=== PATIENT | female | born 1945 | race Caucasian/White ===

== ENCOUNTER → 2019-12-02 11:15 | Outpatient (BNVA) | payer MEDICARE, OTHER, SELFPAY | PROVIDERS: Family Provider Family Medicine; PCP Family Medicine; Referring Provider Family Medicine; Visit Provider Nurse Practitioner | DX: G25.9 Extrapyramidal and movement disorder, unspecified (principal) | CPT/HCPCS: 99204 ==

== ENCOUNTER 2019-12-15 15:16 | Outpatient (CLI) | payer MEDICARE, OTHER, SELFPAY ==
--- NOTE | 2019-12-15 15:25 | MM_ITS ---
WS: [id number] BILATERAL DIGITAL SCREENING MAMMOGRAPHY WITH CAD CLINICAL INFORMATION: SCREENING HISTORY: Screening mammogram. No current complaints. COMPARISON: October 02, 2018 TECHNIQUE: Bilateral CC and MLO views. FINDINGS: Scattered fibroglandular densities bilaterally. No suspicious focal mass, asymmetry, calcifications, or architectural distortion. No evidence of malignancy. Stable benign calcification left breast. Vasc ular calcification. MM/[place] [id number] IMPRESSION: BI-RADS: 2-Benign FOLLOW UP: 1 Year Follow-up Recommend return to annual screening mammography.
== END 2019-12-15 15:17 | disposition home or self-care (01) ==
LOC: RADSHAW 15:23
PROVIDERS: PCP Family Medicine; Visit Provider Family Medicine
DX: Z12.31 Encounter for screening mammogram for malignant neoplasm of breast (principal)
CPT/HCPCS: 77067

== ENCOUNTER 2020-02-26 06:00 | Outpatient (RCR) | payer MEDICARE, OTHER, SELFPAY | END 2020-03-27 23:59 | disposition home or self-care (01) | LOC: MPT 06:00 | PROVIDERS: PCP Family Medicine; Referring Provider Psychiatry & Neurology Neurology; Visit Provider Psychiatry & Neurology Neurology | DX: G20 Parkinson's disease (principal); R26.81 Unsteadiness on feet | CPT/HCPCS: 97110 ==

== ENCOUNTER → 2020-03-07 15:33 | Outpatient (BNVA) | payer MEDICARE, OTHER, SELFPAY | PROVIDERS: PCP Family Medicine; Visit Provider Nurse Practitioner | DX: G25.9 Extrapyramidal and movement disorder, unspecified (principal); M54.9 Dorsalgia, unspecified; F32.9 Major depressive disorder, single episode, unspecified | CPT/HCPCS: 99214 ==

== ENCOUNTER 2020-03-14 14:51 | Outpatient (CLI) | payer MEDICARE, OTHER, SELFPAY ==
--- NOTE | 2020-03-14 15:15 | XR_ITS ---
WS: [id number] CERVICAL SPINE TECHNIQUE: 3 views of the cervical spine CLINICAL INFORMATION: M54.9 - Dorsalgia, unspecified. COMPARISON: None. FINDINGS: Osteopenia. Mild spondylitic changes. Normal C1-C2 articulation. Mild cervical curve convex left. Nor mal dens. Disc space narrowing C3-C4 and C4-C5. Slight retrolisthesis C3 on C4 and C4 on C5. Prevertebral soft tissues within normal limits. XR/XR cervical spine 3V* [id number] IMPRESSION: 1. Osteopenia. 2. Mild spondylitic changes cervical spine. 3. Slight retrolisthesis C3 on C4 and C4 on C5. 4. Disc space narrowing worse at C3-C4 and C4-C5.
--- NOTE | 2020-03-14 15:45 | XR_ITS ---
WS: [id number] THORACIC SPINE TECHNIQUE: 3 views of the thoracic spine CLINICAL INFORMATION: M54.9 - Dorsalgia, unspecified. COMPARISON: None. FINDINGS: Mild thoracic curve convex right. Mild thoracic kyphosis. Minimal anterior wedging in the mid and upp er thoracic spine. No acute appearing compression fractures. Mild disc space narrowing throughout the thoracic spine. XR/XR thoracic spine 3V* [id number] IMPRESSION: 1. Mild thoracic curve convex right. Mild thoracic kyphosis. 2. Mild disc space narrowing throughout the thoracic spine.
== END 2020-03-14 14:52 | disposition home or self-care (01) ==
LOC: RADWPI 14:54
PROVIDERS: PCP Family Medicine; Visit Provider Nurse Practitioner
DX: M54.9 Dorsalgia, unspecified (principal); M40.294 Other kyphosis, thoracic region; M85.88 Other specified disorders of bone density and structure, other site
CPT/HCPCS: 72040; 72072

== ENCOUNTER → 2020-04-19 12:59 | Outpatient (BNVA) | payer MEDICARE, OTHER, SELFPAY | PROVIDERS: PCP Family Medicine; Visit Provider Specialist | DX: G25.0 Essential tremor (principal); M54.9 Dorsalgia, unspecified | CPT/HCPCS: 99214; 99215 ==

== ENCOUNTER → 2020-05-05 13:31 | Outpatient (BNVA) | payer MEDICARE, OTHER, SELFPAY | PROVIDERS: PCP Family Medicine; Referring Provider Specialist; Visit Provider Anesthesiology Pain Medicine | DX: G25.9 Extrapyramidal and movement disorder, unspecified (principal); M54.16 Radiculopathy, lumbar region; M47.816 Spondylosis without myelopathy or radiculopathy, lumbar region; M54.14 Radiculopathy, thoracic region; M54.9 Dorsalgia, unspecified; Z79.891 Long term (current) use of opiate analgesic | CPT/HCPCS: 99204 ==

== ENCOUNTER 2020-05-23 09:13 | Outpatient (CLI) | payer MEDICARE, OTHER, SELFPAY ==
--- NOTE | 2020-05-23 09:30 | MR_ITS ---
WS: [id number] MRI LUMBAR SPINE NONCONTRAST TECHNIQUE: Sagittal T1, T2 and STIR imaging. Axial T1 and T2 imaging. CLINICAL INFORMATION: PAIN COMPARISON: None. FINDINGS: Mild lumbar curve. No acute compression. No high-grade central canal stenosis. L1-L2: Normal. L2-L3: Mild annular bulging. Slight narrowing of the subarticular recess bilaterally. Mild proximal f oraminal narrowing. Mild facet arthropathy. L3-L4: Mild annular bulging with slight impingement traversing right L4 nerve root. Mild right forami nal narrowing. Mild facet arthropathy. L4-L5: Mild annular bulging with narrowing of the subarticular recess bilaterally and slight impingem ent traversing right L5 nerve root. Mild right and no significant left foraminal narrowing. Mild face t arthropathy. L5-S1: No significant disc bulging. Spinal canal and foramen are patent. Visualized pelvic bony structures: Normal. Paravertebral soft tissues: Normal. MR/MR lumbar spine wo con* [id number] IMPRESSION: 1. Mild lumbar curve. No acute compression. No high-grade central canal stenos is. 2. Annular bulging L2-3 with slight impingement traversing L3 nerve roots bila terally. Mild bilateral proximal foraminal narrowing. 3. Annular bulging L3-4 with impingement on the traversing right L4 nerve root subarticular recess. Mild right foraminal narrowing. 4. Annular bulging L4-5 impinges the traversing right greater than left L5 ner ve roots in the subarticular recess. Mild right L4-5 foraminal narrowing.
--- NOTE | 2020-05-23 09:30 | MR_ITS ---
WS: [id number] MRI THORACIC SPINE WITHOUT CONTRAST TECHNIQUE: Sagittal T1, T2 and STIR imaging. Axial T2 imaging. Noncontrast imaging obtained. CLINICAL INFORMATION: PAIN COMPARISON: None. FINDINGS: Moderate thoracic kyphosis in the mid and upper thoracic spine. Mild chronic anterior wedging at T5-T 8. Endplate degenerative changes T9-T10. Cord signal is normal. No high-grade central canal stenosis. Moderate facet arthropathy in the lower thoracic spine. No acute compression fractures. Tiny central protrusion T6-T7 with slight effacement of the ventral thecal sac. Adrenal glands are normal. Normal caliber thoracic aorta. Moderate esophageal hiatal hernia. MR/MR thoracic spin wo con* [id number] IMPRESSION: 1. Moderate thoracic kyphosis. No acute compression fractures. 2. Chronic anterior wedging at T5-T8. 3. Tiny central protrusion at T6-7 with slight effacement of the ventral theca l sac. 4. Moderate facet arthropathy in the lower thoracic spine. 5. No other significant findings.
--- NOTE | 2020-05-23 11:00 | XR_ITS ---
WS: [id number] LUMBAR SPINE FLEXION AND EXTENSION TECHNIQUE: 3 views of the lumbar spine: Lateral neutral, flexion, and extension views. CLINICAL INFORMATION: M47.816 - Spondylosis without myelopathy or radiculopathy, lumbar region COMPARISON: None. FINDINGS: Normal lumbar alignment on the neutral view. No instability on the flexion and extension views. Osteopenia. Moderate facet arthritis L4-L5 and L5-S1. Mild disc space narrowing L5-S1. Aortic calcifi cation. XR/XR lumbar spine f/e only [id number] IMPRESSION: 1. Normal lumbar alignment on the neutral view. No instability on flexion exte nsion. 2. Osteopenia
== END 2020-05-23 09:14 | disposition home or self-care (01) ==
LOC: RADWPI 09:26
PROVIDERS: PCP Family Medicine; Visit Provider Anesthesiology Pain Medicine
DX: M47.816 Spondylosis without myelopathy or radiculopathy, lumbar region (principal); M54.16 Radiculopathy, lumbar region; M85.88 Other specified disorders of bone density and structure, other site; M40.294 Other kyphosis, thoracic region; M48.54XA Collapsed vertebra, not elsewhere classified, thoracic region, initial encounter for fracture; M51.24 Other intervertebral disc displacement, thoracic region; M47.814 Spondylosis without myelopathy or radiculopathy, thoracic region; M51.26 Other intervertebral disc displacement, lumbar region
CPT/HCPCS: 72120; 72146; 72148

== ENCOUNTER → 2020-05-26 10:30 | Outpatient (BNVA) | payer MEDICARE, OTHER, SELFPAY | PROVIDERS: PCP Family Medicine; Visit Provider Anesthesiology Pain Medicine | DX: G89.29 Other chronic pain (principal); M54.9 Dorsalgia, unspecified; M54.14 Radiculopathy, thoracic region; M54.16 Radiculopathy, lumbar region; M47.814 Spondylosis without myelopathy or radiculopathy, thoracic region; M51.36 Other intervertebral disc degeneration, lumbar region; M47.816 Spondylosis without myelopathy or radiculopathy, lumbar region; Z79.891 Long term (current) use of opiate analgesic | CPT/HCPCS: 99215 ==

== ENCOUNTER → 2020-06-03 13:18 | Outpatient (BNVA) | payer MEDICARE, OTHER, SELFPAY | PROVIDERS: PCP Family Medicine; Visit Provider Anesthesiology Pain Medicine | DX: M54.16 Radiculopathy, lumbar region (principal); M54.9 Dorsalgia, unspecified; Z79.891 Long term (current) use of opiate analgesic | CPT/HCPCS: 64483; 64484; J1100; J3490 ==

== ENCOUNTER → 2020-06-17 13:02 | Outpatient (BNVA) | payer MEDICARE, OTHER, SELFPAY | PROVIDERS: PCP Family Medicine; Visit Provider Anesthesiology Pain Medicine | DX: M54.16 Radiculopathy, lumbar region (principal); M54.9 Dorsalgia, unspecified; Z79.891 Long term (current) use of opiate analgesic | CPT/HCPCS: 64483; 64484; J1100; J3490 ==

== ENCOUNTER 2020-06-21 11:25 | Outpatient (RCR) | payer MEDICARE, OTHER, SELFPAY | END 2020-06-24 23:59 | disposition home or self-care (01) | LOC: SPT 11:25 | PROVIDERS: PCP Family Medicine; Referring Provider Anesthesiology Pain Medicine; Visit Provider Anesthesiology Pain Medicine | DX: M54.5 Low back pain (principal); G89.29 Other chronic pain | CPT/HCPCS: 97161 ==

== ENCOUNTER 2020-06-25 06:00 | Outpatient (RCR) | payer MEDICARE, OTHER, SELFPAY | END 2020-07-25 23:59 | disposition home or self-care (01) | LOC: SPT 06:00 | PROVIDERS: PCP Family Medicine; Referring Provider Anesthesiology Pain Medicine; Visit Provider Anesthesiology Pain Medicine | DX: M54.5 Low back pain (principal); G89.29 Other chronic pain | CPT/HCPCS: 97110; 97112; 97116 ==

== ENCOUNTER → 2020-07-04 10:13 | Outpatient (BNVA) | payer MEDICARE, OTHER, SELFPAY | PROVIDERS: PCP Family Medicine; Visit Provider Anesthesiology Pain Medicine | DX: M54.9 Dorsalgia, unspecified (principal); M54.14 Radiculopathy, thoracic region; M54.16 Radiculopathy, lumbar region; M47.814 Spondylosis without myelopathy or radiculopathy, thoracic region; M51.36 Other intervertebral disc degeneration, lumbar region; M47.816 Spondylosis without myelopathy or radiculopathy, lumbar region; Z79.891 Long term (current) use of opiate analgesic | CPT/HCPCS: 99214 ==

== ENCOUNTER 2020-07-26 06:00 | Outpatient (RCR) | payer MEDICARE, OTHER, SELFPAY | END 2020-08-24 23:59 | disposition home or self-care (01) | LOC: SPT 06:00 | PROVIDERS: PCP Family Medicine; Referring Provider Anesthesiology Pain Medicine; Visit Provider Anesthesiology Pain Medicine | DX: M54.5 Low back pain (principal); G89.29 Other chronic pain | CPT/HCPCS: 97110; 97112; 97116 ==

== ENCOUNTER → 2020-08-01 11:02 | Outpatient (BNVA) | payer MEDICARE, OTHER, SELFPAY | PROVIDERS: PCP Family Medicine; Visit Provider Anesthesiology Pain Medicine | DX: G89.29 Other chronic pain (principal); M54.9 Dorsalgia, unspecified; M54.14 Radiculopathy, thoracic region; M54.16 Radiculopathy, lumbar region; M47.814 Spondylosis without myelopathy or radiculopathy, thoracic region; M51.36 Other intervertebral disc degeneration, lumbar region; M47.816 Spondylosis without myelopathy or radiculopathy, lumbar region; M79.604 Pain in right leg; Z79.891 Long term (current) use of opiate analgesic | CPT/HCPCS: 99214 ==

== ENCOUNTER → 2020-08-12 13:00 | Outpatient (BNVA) | payer MEDICARE, OTHER, SELFPAY | PROVIDERS: PCP Family Medicine; Visit Provider Anesthesiology Pain Medicine | DX: M47.814 Spondylosis without myelopathy or radiculopathy, thoracic region (principal); M54.9 Dorsalgia, unspecified; Z79.891 Long term (current) use of opiate analgesic | CPT/HCPCS: 64490; 64491; 64492; J1030; J3490 ==

== ENCOUNTER 2020-08-25 06:00 | Outpatient (RCR) | payer MEDICARE, OTHER, SELFPAY | END 2020-09-24 23:59 | disposition home or self-care (01) | LOC: SPT 06:00 | PROVIDERS: PCP Family Medicine; Referring Provider Anesthesiology Pain Medicine; Visit Provider Anesthesiology Pain Medicine | DX: M54.5 Low back pain (principal); G89.29 Other chronic pain | CPT/HCPCS: 97110 ==

== ENCOUNTER → 2020-08-31 11:01 | Outpatient (BNVA) | payer MEDICARE, OTHER, SELFPAY | PROVIDERS: PCP Family Medicine; Visit Provider Specialist | DX: G31.84 Mild cognitive impairment of uncertain or unknown etiology (principal); D36.10 Benign neoplasm of peripheral nerves and autonomic nervous system, unspecified; G51.33 Clonic hemifacial spasm, bilateral | CPT/HCPCS: 96116; 99215 ==

== ENCOUNTER → 2020-09-01 12:49 | Outpatient (BNVA) | payer MEDICARE, OTHER, SELFPAY | PROVIDERS: PCP Family Medicine; Visit Provider Anesthesiology Pain Medicine | DX: M54.9 Dorsalgia, unspecified (principal); M54.14 Radiculopathy, thoracic region; M54.16 Radiculopathy, lumbar region; M47.814 Spondylosis without myelopathy or radiculopathy, thoracic region; M51.36 Other intervertebral disc degeneration, lumbar region; M47.816 Spondylosis without myelopathy or radiculopathy, lumbar region | CPT/HCPCS: 99213 ==

== ENCOUNTER → 2020-11-03 10:32 | Outpatient (BNVA) | payer MEDICARE, OTHER, SELFPAY | PROVIDERS: PCP Family Medicine; Visit Provider Specialist | DX: G31.83 Neurocognitive disorder with Lewy bodies (principal); F02.80 Dementia in other diseases classified elsewhere, unspecified severity, without behavioral disturbance, psychotic disturbance, mood disturbance, and anxiety; G51.33 Clonic hemifacial spasm, bilateral | CPT/HCPCS: 64612; 99215; J0585 ==

== ENCOUNTER → 2020-11-16 11:54 | Outpatient (BNVA) | payer MEDICARE, OTHER, SELFPAY | PROVIDERS: PCP Family Medicine; Visit Provider Specialist | DX: R49.8 Other voice and resonance disorders (principal); G51.33 Clonic hemifacial spasm, bilateral; T48.295A Adverse effect of other drugs acting on muscles, initial encounter; G20 Parkinson's disease; G31.84 Mild cognitive impairment of uncertain or unknown etiology; F32.9 Major depressive disorder, single episode, unspecified | CPT/HCPCS: 99215 ==

== ENCOUNTER → 2020-11-24 12:46 | Outpatient (BNVA) | payer MEDICARE, OTHER, SELFPAY | PROVIDERS: PCP Family Medicine; Visit Provider Anesthesiology Pain Medicine | DX: M47.814 Spondylosis without myelopathy or radiculopathy, thoracic region (principal); M54.14 Radiculopathy, thoracic region; M51.36 Other intervertebral disc degeneration, lumbar region; M47.816 Spondylosis without myelopathy or radiculopathy, lumbar region; M54.16 Radiculopathy, lumbar region | CPT/HCPCS: 99213; 99214 ==

== ENCOUNTER 2020-12-13 10:13 | Emergency (ER) | payer MEDICARE, OTHER, SELFPAY ==
[2020-12-13 10:26] VITALS: BP 138/80; PULSE 100; RESP 16; TEMP 36.6; O2SAT 97; BMI 20.9
--- NOTE | 2020-12-13 11:07 | XRR_ITS ---
PROCEDURE INFORMATION: Exam: XR Chest Exam date and time: 12/13/2020 11:07 AM Age: 75 years old Clinical indication: Cough and dyspnea; Patient HX: -general weakness; Additional info: Dyspnea/cough TECHNIQUE: Imaging protocol: XR of the chest. Views: 1 view. COMPARISON: CR Chest 2 views* [id number] 06/09/2018 2:26 PM FINDINGS: Lungs: Unremarkable. No consolidation. Pleural spaces: Unremarkable. No pleural effusion. No pneumothorax. Heart/Mediastinum: There is a hiatal hernia similar to old studies. The heart is not enlarged. Bones/joints: Unremarkable. XR/XR chest 1V portable [id number] IMPRESSION: No acute abnormalities are seen in the chest. Radiation Dose CTDIVOL = (mGy): DLP = (mGy-cm)
--- NOTE | 2020-12-13 11:52 | CT_ITS ---
WS: [id number] CT HEAD TECHNIQUE: Noncontrast CT of the head obtained from the skullbase to the vertex. CLINICAL INFORMATION: weakness, leg weakness COMPARISON: CT February 2018 and MRI June 2019 DLP: 814.[address] scans at [facility] use at least one of these dose optimization techniques: automated e xposure control; mA and/or kV adjustment per patient size (includes targeted exams where dose is matc hed to clinical indication); or iterative reconstruction. FINDINGS: No evidence of intracranial hemorrhage or mass effect. Ventricular system and basal cisterns are espinoza nt. Moderate small vessel changes with moderate parenchymal volume loss. 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 Intracranial vascular calcification. No extra-axial fluid collections. No evidence of mass or mass effect. Polypoid mucosal thickening in the paranasal sinuses. Partial opacification ethmoid air cells. Mastoi d air cells are well aerated.. CT/CT head wo con* [id number] IMPRESSION: 1. No evidence of intracranial hemorrhage or mass effect. 2. Moderate small vessel changes with moderate parenchymal volume loss. 3. Chronic lacunar infarcts in the basal ganglia. 4. Polypoid mucosal thickening in the paranasal sinuses. 5. No acute intracranial findings.
[2020-12-13 11:59] LABS: Basophils # 0.1 10^3/uL (0.0-0.1); Eosinophils # 0.3 10^3/uL (0.0-0.8); Eosinophils % 4.5 %; Hematocrit 39.2 % (37.0-47.0); Hemoglobin 13.6 g/dL (11.5-15.3); Lymphocytes # 1.2 10^3/uL (0.8-4.8); Lymphocytes % 20.9 %; Mean Corpuscular HGB Conc 34.7 g/dL (30.0-36.0); Mean Corpuscular Hemoglobin 31.9 pg (28.0-34.0); Mean Corpuscular Volume 91.8 fl (81-99); Monocytes # 0.5 10^3/uL (0.2-0.9); Monocytes % 8.3 %; Neutrophils # 3.77 10^3/uL (1.8-7.7); Neutrophils % 65.3 %; Nucleated Red Blood Cells % 0 %; Platelet Count 295 10^3/cmm (130-400); Red Blood Count 4.27 10^6/uL (4.1-5.3); Red Cell Distribution Width 11.6 % (12.1-15.1); White Blood Count 5.8 10^3/uL (4.0-10.0)
[2020-12-13 12:21] LABS: Alanine Aminotransferase 16 U/L (0-33); Albumin Level 4.1 g/dL (3.5-5.2); Alkaline Phosphatase 72 IU/L (35-105); Anion Gap 10.8 (5-19); Aspartate Amino Transferase 19 U/L (0-32); Blood Urea Nitrogen 10 mg/dL (8-23); Calcium 9.8 mg/dL (8.5-10.5); Carbon Dioxide 30 mmol/L (22-29); Chloride 102 mmol/L (98-107); Globulin 2.9 g/dL (1.3-4.6); Glucose 84 mg/dL (65-115); Osmolality Calculated 286 mOsm/kg (285-295); Potassium 3.8 mmol/L (3.5-5.1); Sodium 139 mmol/L (136-145); Total Bilirubin 0.4 mg/dL (0.15-1.2)
[2020-12-13 13:06] VITALS: BP 149/75; PULSE 87; RESP 17; O2SAT 97
--- NOTE | 2020-12-13 13:51 | W.ED.WEAKNES ---
HPI - Weakness General: Chief complaint: Weakness Stated complaint: GENERAL WEAKNESS X 4 DAYS Time Seen by Provider: 12/13/20 10:56 History of Present Illness: HPI Narrative: 75-year-old female presents emergency room complaint of bilateral weakness lower extremities. She lives at home alone.Patient has been seen by Dr. Payan. There is concern in the past about Parkinson's and she was treated with Sinemet but it did not seem to help but she had side effects. In talking to her this is been a progressive issue. She was recently stopped on her citalopram. She had some concerns about Botox but and Dr. Payan thought it was more progressive neurologic disorder something in the Parkinson's group. MD Complaint: generalized weakness Onset (ago): month(s) Duration: constant and progressively worsening Location: LLE and RLE Severity: moderate Relieving factors: none Exacerbating factors: none Associated symptoms: Denies chest pain, chills, confusion, melena, decreased appetite, diaphoresis, dysuria, easy bruising, fever(s), headache(s), myalgias, nausea, rash, short of breath, syncope or vomiting Review of Systems Const: Denies: fever(s), chills or diaphoresis ENMT: Denies: throat pain, ear or mastoid pain, nasal discharge or nasal congestion Card: Denies: chest pain or syncope Resp: Denies: dyspnea, productive cough or non-productive cough GI: Denies: nausea, vomiting or melena : Denies: dysuria Skin/Breast: Denies: rash or pruritus Neuro: Denies: headache(s) or confusion Ananth/Lymph: Denies: easy bruising FOR[facility]LY [facility] ED PFSH: Medical History Back pain Depression Movement disorder Family History Other Stroke Social History Second hand smoke exposure: No Alcohol intake: never History of recent travel: No Physical Exam Const: COMMON NORMALS: no acute distress GENERAL APPEARANCE: cooperative and comfortable ORIENTATION/CONSCIOUSNESS: Yes awake HENMT: COMMON NORMALS: normocephalic, atraumatic and hearing grossly normal bilaterally HEAD & SCALP: normocephalic and atraumatic Neck/C-Spine: COMMON NORMALS: no JVD Resp: COMMON NORMALS: normal respiratory effort, No retractions, No use of accessory muscles and clear to auscultation bilaterally AUSCULTATION: clear to auscultation bilaterally Cardio: COMMON NORMALS: no JVD, regular rate, regular rhythm and No murmurs present (Cardio) RATE: regular rate RHYTHM: regular rhythm GI: COMMON NORMALS: Soft to palpation and No hepatosplenomegaly present AUSCULTATION: Yes normoactive bowel sounds PALPATION: Yes Soft to palpation, No Tenderness to palpation present (GI), No Guarding due to palpation present (GI) and Yes No hepatosplenomegaly present Extremity: COMMON NORMALS: normal to inspection, capillary refill normal, no clubbing, cyanosis or edema, no calf tenderness and no pedal edema Skin: COMMON NORMALS: no rashes or lesions noted GENERAL SKIN EXAM: no rashes or lesions noted Course Vital Signs: Vital signs: Vital Signs Temperature 97.8 F 12/13/20 10:26 Pulse Rate 95 12/13/20 14:06 Respiratory Rate 17 12/13/20 14:06 Blood Pressure 153/80 12/13/20 14:06 Pulse Oximetry 98 12/13/20 14:06 MDM - Weakness MDM Narrative: Medical decision making narrative: Patient has previously been evaluated by Dr. Payan there is a concern is a Parkinson's-like disorder but she is failed Sinemet on at least 2 occasions. Patient states she is progressively worsening. Feels like she cannot get around now. I cannot find anything acute at this point and it is a progressive worsening of the problem she is already been seen for. I think she would benefit from improved help with ADLs and offered placement with an eye towards rehab/half-way. Patient does not want to do this and prefers to go home. She has any change recommend that she return or follow-up with Dr. Payan. Lab Data: Labs: Lab Results 12/13/20 12/13/20 12/13/20 11:40 11:40 14:13 WBC 5.8 10^3/uL 10^3/ uL (4.0-10.0) RBC 4.27 10^6/uL 10^6 /uL (4.1-5.3) Hgb 13.6 g/dL g/dL (11.5-15.3) Hct 39.2 % % (37.0-47.0) MCV 91.8 fl fl (81-99) MCH 31.9 pg pg (28.0-34.0) MCHC 34.7 g/dL g/dL (30.0-36.0) RDW 11.6 % L % (12.1-15.1) Plt Count 295 10^3/cmm 10^3 /cmm (130-400) MPV 10.0 fL fL (7.4-10.4) Neut % (Auto) 65.3 % % Lymph % (Auto) 20.9 % % [place] % (Auto) 8.3 % % Eos % (Auto) 4.5 % % Baso % (Auto) 1.0 % % Neut # (Auto) 3.77 10^3/uL 10^3 /uL (1.8-7.7) Lymph # (Auto) 1.2 10^3/uL 10^3/ uL (0.8-4.8) [place] # (Auto) 0.5 10^3/uL 10^3/ uL (0.2-0.9) Eos # (Auto) 0.3 10^3/uL 10^3/ uL (0.0-0.8) Baso # (Auto) 0.1 10^3/uL 10^3/ uL (0.0-0.1) Nucleated RBC % (a uto) 0 % % Nucleated RBCs # 0.0 /100WBC /100W BC Sodium 139 mmol/L mmol/L (136-145) Potassium 3.8 mmol/L mmol/L (3.5-5.1) Chloride 102 mmol/L mmol/L (98-107) Carbon Dioxide 30 mmol/L H mmol/ L (22-29) Anion Gap 10.8 (5-19) BUN 10 mg/dL mg/dL (8-23) Creatinine 0.6 mg/dL mg/dL (0.5-0.9) GFR Calculation Not Reportable Glucose 84 mg/dL mg/dL (65-115) Calculated Osmolal ity 286 mOsm/kg mOsm/ kg (285-295) Calcium 9.8 mg/dL mg/dL (8.5-10.5) Total Bilirubin 0.4 mg/dL mg/dL (0.15-1.2) AST 19 U/L U/L (0-32) ALT 16 U/L U/L (0-33) Alkaline Phosphata se 72 IU/L IU/L (35-105) Total Protein 7.0 g/dL g/dL (6.6-8.7) Albumin 4.1 g/dL g/dL (3.5-5.2) Globulin 2.9 g/dL g/dL (1.3-4.6) Urine Color Straw (Yellow) Urine Appearance Clear (CLEAR) Urine pH 7 (5-7) Ur Specific Gravit y 1.015 (1.005-1.030) Urine Protein Neg (Negative) Urine Glucose (UA) Norm (Normal) Urine Ketones Negative (Negative) Urine Blood Neg (Negative) Urine Nitrate Negative (Negative) Urine Bilirubin Neg (Negative) Urine Urobilinogen Norm mg/dL mg/dL (Negative) Ur Leukocyte Dionne ase Negative (Negative) Discharge Plan Discharge Patient Disposition: Home Clinical Impression: Movement disorder, Mild cognitive impairment with memory loss Condition: Stable Prescriptions: No Action alendronate 70 mg tablet PO RF: 0 buspirone 5 mg tablet 5 mg PO BID RF: 0 meloxicam 7.5 mg tablet 7.5 mg PO DAILY RF: 0 tramadol 50 mg tablet 50 mg PO TID RF: 0 albuterol sulfate [Ventolin HFA] 90 mcg/actuation HFA aerosol inhaler 2 inh INHALATION Q4H PRNRF: 0 vitamin B complex [B Complex-Vitamin B12] Tablet 1 tab PO DAILY RF: 0 cholecalciferol (vitamin D3) 25 mcg (1,000 unit) tablet 1,000 unit PO DAILY RF: 0 calcium carbonate [Calcium 600] 600 mg calcium (1,500 mg) tablet 600 mg PO BID RF: 0 multivitamin Tablet 1 tab PO DAILY RF: 0 magnesium 200 mg tablet 200 mg PO DAILY RF: 0 acetaminophen [Tylenol] 325 mg tablet 325 mg PO Q6H PRNRF: 0 citalopram 10 mg tablet 20 mg PO BID RF: 0 galantamine 8 mg capsule,ext rel. pellets 24 hr 8 mg PO QAM Qty: 30 RF: 0 galantamine 16 mg capsule,ext rel. pellets 24 hr 16 mg PO QAM Qty: 30 RF: 0 galantamine 24 mg capsule,ext rel. pellets 24 hr 24 mg PO QAM Qty: 90 RF: 0 Discharge Orders: Discharge ED (Routine); Ordered 12/13/20 Ordered By: Bassam Palacios Referrals: Rafita Bacon MD [Primary Care Provider] - Discharge Diet: Usual diet Discharge Activity: Increase activity as tolerated Patient Instructions: Opioid Safety Activity Restrictions/Additional Instructions: Follow-up with Dr. Payan her primary care doctor within the next week. Coding Level of Care Code ED Sales Representative [facility] for Kenneth Lozano
[2020-12-13 14:06] VITALS: BP 153/80; PULSE 95; RESP 17; O2SAT 98
[2020-12-13 14:28] LABS: Add Urine Microscopic? NO; Charge for UA Resulting for Rev
[2020-12-13 14:43] LABS: Bilirubin Urine Neg (Negative); Blood Urine Neg (Negative); Glucose Urine UA Norm (Normal); Ketones Urine Negative (Negative); Leukocyte Esterase Urine Negative (Negative); Nitrate Urine Negative (Negative); Protein Urine Neg (Negative); Specific Gravity, Urine 1.015 (1.005-1.030); Urine Appearance Clear (CLEAR); Urine Color Straw (Yellow); Urobilinogen Urine Norm (Negative); pH Urine 7 (5-7)
== END 2020-12-13 14:21 | disposition home or self-care (01) ==
PROVIDERS: Emergency Provider Family Medicine; PCP Family Medicine
DX: G25.9 Extrapyramidal and movement disorder, unspecified (principal); F06.8 Other specified mental disorders due to known physiological condition
CPT/HCPCS: 70450; 71045; 80053; 81003; 85025; 99283

== ENCOUNTER 2020-12-22 15:42 | Emergency (ER) | payer MEDICARE, OTHER, SELFPAY ==
--- NOTE | 2020-12-22 15:52 | ECG_ITS ---
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 Measurements Intervals [place] Rate: 97 P: 51 SC: 148 QRS: 15 QRSD: 84 T: 48 QT: 339 QTc: 432 Interpretive Statements SINUS RHYTHM POSSIBLE LEFT ATRIAL ENLARGEMENT [-0.1mV P-WAVE IN V1/V2] Compared to ECG 02/26/2018 17:37:41 No significant changes Electronically Signed On 12-22-2020 23:57:09 CDT by Lonnie Morales M.D. [id number] f
--- NOTE | 2020-12-22 15:52 | XRR_ITS ---
PROCEDURE INFORMATION: Exam: XR Chest Exam date and time: 12/22/2020 3:52 PM Age: 75 years old Clinical indication: Pain; Chest pressure; Additional info: Chest pain TECHNIQUE: Imaging protocol: XR of the chest. Views: 1 view. COMPARISON: CR XR chest 1V portable [id number] 12/13/2020 11:30 AM FINDINGS: Lungs: Unremarkable. No consolidation. Pleural spaces: Unremarkable. No pleural effusion. No pneumothorax. Heart/Mediastinum: Unremarkable. No cardiomegaly. Bones/joints: Unremarkable. XR/XR chest 1V portable [id number] IMPRESSION: No acute findings. Radiation Dose CTDIVOL = (mGy): DLP = (mGy-cm)
[2020-12-22 16:13] VITALS: BP 143/86; PULSE 99; RESP 14; TEMP 36.9; O2SAT 96; BMI 20.5
[2020-12-22 16:19] VITALS: BP 141/77; PULSE 96; RESP 12; O2SAT 98
--- NOTE | 2020-12-22 17:52 | ECG_ITS ---
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 Measurements Intervals [place] Rate: 88 P: 52 WA: 147 QRS: 11 QRSD: 90 T: 37 QT: 350 QTc: 424 Interpretive Statements SINUS RHYTHM Compared to ECG 12/22/2020 16:10:04 No significant changes Electronically Signed On 12-23-2020 0:02:03 CDT by Lonnie Morales M.D. [email or web address]
[2020-12-22 18:27] LABS: Basophils # 0.1 10^3/uL (0.0-0.1); Basophils % 0.9 %; Eosinophils # 0.1 10^3/uL (0.0-0.8); Eosinophils % 2.3 %; Hemoglobin 13.5 g/dL (11.5-15.3); Lymphocytes # 1.3 10^3/uL (0.8-4.8); Lymphocytes % 23.5 %; Mean Corpuscular HGB Conc 32.9 g/dL (30.0-36.0); Mean Corpuscular Hemoglobin 31.3 pg (28.0-34.0); Mean Corpuscular Volume 94.9 fl (81-99); Monocytes # 0.5 10^3/uL (0.2-0.9); Neutrophils # 3.64 10^3/uL (1.8-7.7); Neutrophils % 64.1 %; Nucleated Red Blood Cells % 0 %; Platelet Count 271 10^3/cmm (130-400); Red Blood Count 4.32 10^6/uL (4.1-5.3); Red Cell Distribution Width 11.3 % (12.1-15.1); White Blood Count 5.7 10^3/uL (4.0-10.0)
--- NOTE | 2020-12-22 18:34 | ED_ITS ---
HPI - Chest Pain General: Chief Complaint: Chest Pain Stated Complaint: CHEST PAIN Time Seen by Provider: 12/22/20 17:50 Source: patient Mode of arrival: ambulatory Limitations: no limitations History of Present Illness: HPI narrative: 75-year-old female who is here with multiple complaints. She states she has had chest pain along with some abdominal pain generalized weakness and nausea for weeks. She states she is also had some slight dysuria. She denies any shortness of breath. States her pain in her chest is sharp and worse with palpation. Denies any fevers or cough . Associated symptoms: Reports nausea and vomiting; Deny dyspnea or fever(s) Review of Systems Const: Denies: fever(s), chills, body aches or change in appetite Eyes: Denies: blurry vision or eye discomfort ENMT: Denies: throat pain or dental pain Card: Reports: chest pain Resp: Denies: dyspnea GI: Reports: nausea and vomiting : Denies: dysuria Musc: Denies: neck pain or back pain Skin/Breast: Denies: rash Neuro: Denies: headache(s) Psych: Denies: depression Ananth/Lymph: Denies: easy bruising All/Imm: Denies: urticaria PFSH ED PFSH: Medical History Back pain Depression Movement disorder Family History Other Stroke Social History Second hand smoke exposure: No Alcohol intake: never History of recent travel: No Physical Exam Const: COMMON NORMALS: no acute distress, patient oriented x3 and healthy appearing HENMT: COMMON NORMALS: normocephalic and atraumatic HEAD & SCALP: normocephalic and atraumatic Eye: COMMON NORMALS: Equal, round and reactive pupils present and EOMs intact bilaterally PUPIL: Yes Equal, round and reactive pupils present Neck/C-Spine: COMMON NORMALS: full ROM and supple Chest: COMMONS NORMALS: normal inspection of the chest and normal palpation of entire chest wall Resp: COMMON NORMALS: normal respiratory effort, No retractions, No use of accessory muscles and clear to auscultation bilaterally AUSCULTATION: clear to auscultation bilaterally Cardio: COMMON NORMALS: regular rate, regular rhythm and No murmurs present (Cardio) RATE: regular rate RHYTHM: regular rhythm GI: COMMON NORMALS: Normal to inspection, nondistended, normoactive bowel sounds present, Soft to palpation, non-tender and no masses PALPATION: Yes Soft to palpation Extremity: COMMON NORMALS: normal to inspection and full ROM Neuro: COMMON NORMALS: patient oriented x3, moves all extremities and no focal motor deficits Psych: COMMON NORMALS: mental status grossly normal, Normal thought process present and cooperative THOUGHT PROCESS: Normal thought process present Skin: COMMON NORMALS: no rashes or lesions noted and no wounds GENERAL SKIN EXAM: no rashes or lesions noted Course Vital Signs: Vital signs: Vital Signs Temperature 98.4 F 12/22/20 16:13 Pulse Rate 96 12/22/20 16:19 Respiratory Rate 12 12/22/20 16:19 Blood Pressure 141/77 12/22/20 16:19 Pulse Oximetry 98 12/22/20 16:19 MDM - Chest Pain MDM Narrative: Medical decision making narrative: Patient presents here with chest pain along with vomiting that is atypical in nature. Patient is well- appearing here troponins and blood work is all normal. Her abdominal exam is benign. She is to follow-up with PCP and return if worsening she understands agrees to plan. Lab Data: Labs: Lab Results 12/22/20 12/22/20 12/22/20 18:03 18:03 18:03 WBC 5.7 10^3/uL 10^3/ uL (4.0-10.0) RBC 4.32 10^6/uL 10^6 /uL (4.1-5.3) Hgb 13.5 g/dL g/dL (11.5-15.3) Hct 41.0 % % (37.0-47.0) MCV 94.9 fl fl (81-99) MCH 31.3 pg pg (28.0-34.0) MCHC 32.9 g/dL g/dL (30.0-36.0) RDW 11.3 % L % (12.1-15.1) Plt Count 271 10^3/cmm 10^3 /cmm (130-400) MPV 10.0 fL fL (7.4-10.4) Neut % (Auto) 64.1 % % Lymph % (Auto) 23.5 % % Gilliam % (Auto) 9.0 % % Eos % (Auto) 2.3 % % Baso % (Auto) 0.9 % % Neut # (Auto) 3.64 10^3/uL 10^3 /uL (1.8-7.7) Lymph # (Auto) 1.3 10^3/uL 10^3/ uL (0.8-4.8) Gilliam # (Auto) 0.5 10^3/uL 10^3/ uL (0.2-0.9) Eos # (Auto) 0.1 10^3/uL 10^3/ uL (0.0-0.8) Baso # (Auto) 0.1 10^3/uL 10^3/ uL (0.0-0.1) Nucleated RBC % (a uto) 0 % % Nucleated RBCs # 0.0 /100WBC /100W BC Sodium 138 mmol/L mmol/L (136-145) Potassium 3.8 mmol/L mmol/L (3.5-5.1) Chloride 101 mmol/L mmol/L (98-107) Carbon Dioxide 26 mmol/L mmol/L (22-29) Anion Gap 14.8 (5-19) BUN 11 mg/dL mg/dL (8-23) Creatinine 0.5 mg/dL mg/dL (0.5-0.9) GFR Calculation Not Reportable Glucose 98 mg/dL mg/dL (65-115) Calculated Osmolal ity 285 mOsm/kg mOsm/ kg (285-295) Calcium 10.0 mg/dL mg/dL (8.5-10.5) Total Bilirubin 0.4 mg/dL mg/dL (0.15-1.2) AST 18 U/L U/L (0-32) ALT 15 U/L U/L (0-33) Alkaline Phosphata se 77 IU/L IU/L (35-105) Troponin T Baselin e 14 ng/L H ng/L (0-10) Troponin T 120 [place] Troponin T Total Protein 7.0 g/dL g/dL (6.6-8.7) Albumin 4.4 g/dL g/dL (3.5-5.2) Globulin 2.6 g/dL g/dL (1.3-4.6) Lipase Urine Color Urine Appearance Urine pH Ur Specific Gravit y Urine Protein Urine Glucose (UA) Urine Ketones Urine Blood Urine Nitrate Urine Bilirubin Prot Sulfosalicyli c Acd Urine Urobilinogen Ur Leukocyte Dionne ase 12/22/20 12/22/20 12/22/20 18:03 18:03 19:54 WBC RBC Hgb Hct MCV MCH MCHC RDW Plt Count MPV Neut % (Auto) Lymph % (Auto) Gilliam % (Auto) Eos % (Auto) Baso % (Auto) Neut # (Auto) Lymph # (Auto) Gilliam # (Auto) Eos # (Auto) Baso # (Auto) Nucleated RBC % (a uto) Nucleated RBCs # Sodium Potassium Chloride Carbon Dioxide Anion Gap BUN Creatinine GFR Calculation Glucose Calculated Osmolal ity Calcium Total Bilirubin AST ALT Alkaline Phosphata se Troponin T Baselin e Troponin T 120 [place] 13.69 ng/L H ng/L (0-10) Delta Troponin T -0.31 ABS# L ABS# (0-10) Total Protein Albumin Globulin Lipase 46 U/L U/L (13-60) Urine Color Straw (Yellow) Urine Appearance Clear (CLEAR) Urine pH 8 H (5-7) Ur Specific Gravit y 1.010 (1.005-1.030) Urine Protein Neg (Negative) Urine Glucose (UA) Norm (Normal) Urine Ketones Negative (Negative) Urine Blood Neg (Negative) Urine Nitrate Negative (Negative) Urine Bilirubin Neg (Negative) Prot Sulfosalicyli c Acd Negative (Negative) Urine Urobilinogen Norm mg/dL mg/dL (Negative) Ur Leukocyte Dionne ase Negative (Negative) Imaging Data^: CXR: Attestation: I personally reviewed and interpreted this imaging study as follows: My impression: no acute abnormality EKG Data^: EKG 1: Attestation: I personally reviewed and interpreted this EKG as follows: EKG interpretation date: 12/22/20 EKG interpretation time: 16:10 Interpretation: nsr hr [address] or t wave abnormalities qrs 84 qtc 394 EKG 2: Attestation: I personally reviewed and interpreted this EKG as follows: EKG interpretation date: 12/22/20 EKG interpretation time: 18:25 Interpretation: nsr hr [address] or t wave abnormalities qrs 90 qtc 395 Discharge Plan Discharge Patient Disposition: Home Clinical Impression: Chest pain, Vomiting Condition: Stable Prescriptions: New ondansetron 4 mg tablet,disintegrating 4 mg PO Q6H PRN (Reason: nausea and vomiting) Qty: 14 RF: 0 No Action alendronate 70 mg tablet PO RF: 0 buspirone 5 mg tablet 5 mg PO BID RF: 0 meloxicam 7.5 mg tablet 7.5 mg PO DAILY RF: 0 tramadol 50 mg tablet 50 mg PO TID RF: 0 albuterol sulfate [Ventolin HFA] 90 mcg/actuation HFA aerosol inhaler 2 inh INHALATION Q4H PRNRF: 0 vitamin B complex [B Complex-Vitamin B12] Tablet 1 tab PO DAILY RF: 0 cholecalciferol (vitamin D3) 25 mcg (1,000 unit) tablet 1,000 unit PO DAILY RF: 0 calcium carbonate [Calcium 600] 600 mg calcium (1,500 mg) tablet 600 mg PO BID RF: 0 multivitamin Tablet 1 tab PO DAILY RF: 0 magnesium 200 mg tablet 200 mg PO DAILY RF: 0 acetaminophen [Tylenol] 325 mg tablet 325 mg PO Q6H PRNRF: 0 citalopram 10 mg tablet 20 mg PO BID RF: 0 galantamine 8 mg capsule,ext rel. pellets 24 hr 8 mg PO QAM Qty: 30 RF: 0 galantamine 16 mg capsule,ext rel. pellets 24 hr 16 mg PO QAM Qty: 30 RF: 0 galantamine 24 mg capsule,ext rel. pellets 24 hr 24 mg PO QAM Qty: 90 RF: 0 Discharge Orders: Discharge ED (Routine); Ordered 12/22/20 Ordered By: Chelsy Trinh Referrals: Rafita Bacon MD [Primary Care Provider] - 1-3 days Discharge Diet: Advance as tolerated Discharge Activity: Resume usual activity Patient Instructions: Chest Pain (ED), Acute Nausea and Vomiting (ED) Coding Level of Care Code ED Insecticide Maker for Kenneth Fwd Exam Comprehensive
[2020-12-22 18:52] LABS: Alanine Aminotransferase 15 U/L (0-33); Albumin Level 4.4 g/dL (3.5-5.2); Alkaline Phosphatase 77 IU/L (35-105); Aspartate Amino Transferase 18 U/L (0-32); Blood Urea Nitrogen 11 mg/dL (8-23); Carbon Dioxide 26 mmol/L (22-29); Chloride 101 mmol/L (98-107); Globulin 2.6 g/dL (1.3-4.6); Glucose 98 mg/dL (65-115); Osmolality Calculated 285 mOsm/kg (285-295); Sodium 138 mmol/L (136-145); Total Bilirubin 0.4 mg/dL (0.15-1.2)
[2020-12-22 18:53] LABS: Lipase 46 U/L (13-60)
[2020-12-22 18:57] LABS: Troponin(5th) Baseline 14 ng/L (0-10)
[2020-12-22 19:06] LABS: Anion Gap 14.8 (5-19); Potassium 3.8 mmol/L (3.5-5.1)
--- NOTE | 2020-12-22 19:35 | PC.NURSE ---
Report given that EKG done on day shift and given to doctor at 16:12.
[2020-12-22 19:40] LABS: Add Urine Microscopic? NO; Charge for UA Resulting for Rev
[2020-12-22 19:45] LABS: Bilirubin Urine Neg (Negative); Blood Urine Neg (Negative); Glucose Urine UA Norm (Normal); Ketones Urine Negative (Negative); Leukocyte Esterase Urine Negative (Negative); Nitrate Urine Negative (Negative); Protein Urine Neg (Negative); Sulfosalicylic Acid Urine Negative (Negative); Urine Appearance Clear (CLEAR); Urine Color Straw (Yellow); Urobilinogen Urine Norm (Negative); pH Urine 8 (5-7)
[2020-12-22 20:21] LABS: Troponin 5 2HR 13.69 ng/L (0-10)
[2020-12-22 20:23] LABS: Troponin 5 2HR Delta -0.31 ABS# (0-10)
[2020-12-22 20:56] VITALS: BP 138/74; PULSE 78; O2SAT 98
== END 2020-12-22 20:59 | disposition home or self-care (01) ==
PROVIDERS: Physician Assistant; Emergency Provider Emergency Medicine; PCP Family Medicine
DX: R07.89 Other chest pain (principal); R11.10 Vomiting, unspecified
CPT/HCPCS: 36415; 71045; 80053; 81003; 83690; 84484; 85025; 93005; 99283

== ENCOUNTER 2021-01-24 06:00 | Outpatient (RCR) | payer MEDICARE, OTHER, SELFPAY | END 2021-01-24 23:59 | disposition home or self-care (01) | LOC: MPT 06:00 | PROVIDERS: PCP Family Medicine; Referring Provider Psychiatry & Neurology Neurology; Visit Provider Psychiatry & Neurology Neurology | DX: G20 Parkinson's disease (principal) | CPT/HCPCS: 97110; 97162 ==

== ENCOUNTER 2021-01-25 06:00 | Outpatient (RCR) | payer MEDICARE, OTHER, SELFPAY | END 2021-02-24 23:59 | disposition home or self-care (01) | LOC: MPT 06:00 | PROVIDERS: PCP Family Medicine; Referring Provider Psychiatry & Neurology Neurology; Visit Provider Psychiatry & Neurology Neurology | DX: G20 Parkinson's disease (principal); R26.81 Unsteadiness on feet | CPT/HCPCS: 97110; 97112; 97116; 97530 ==

== ENCOUNTER 2021-05-18 09:49 | Outpatient (CLI) | payer MEDICARE, OTHER, SELFPAY ==
--- NOTE | 2021-05-18 09:52 | MM_ITS ---
WS: [id number] BILATERAL 3D TOMOSYNTHESIS DIGITAL SCREENING MAMMOGRAPHY WITH CAD CLINICAL INFORMATION: SCREENING HISTORY: Screening mammogram. LEFT breast soreness COMPARISON: December 15, 2019 TECHNIQUE: Bilateral CC and MLO views. FINDINGS: Scattered fibroglandular densities bilaterally. Lucent centered calcification LEFT breast. Vascular c alcification. Increasing asymmetric density upper RIGHT breast near the 12:00 position. Recommend spo t compression views and ultrasound if persistent. LEFT breast is unremarkable and unchanged. MM/[place] [id number] IMPRESSION: BI-RADS: 0-Incomplete: Need additional imaging evaluation FOLLOW UP: Need Additional Imaging Recommend RIGHT diagnostic mammography with spot compression views and ultrasou nd if persistent
== END 2021-05-18 09:50 | disposition home or self-care (01) ==
LOC: RADSHAW 09:50
PROVIDERS: PCP Family Medicine; Visit Provider Family Medicine
DX: Z12.31 Encounter for screening mammogram for malignant neoplasm of breast (principal)
CPT/HCPCS: 77063; 77067

== ENCOUNTER 2021-06-08 13:23 | Outpatient (CLI) | payer MEDICARE, OTHER, SELFPAY ==
--- NOTE | 2021-06-08 13:35 | MM_ITS ---
WS: [id number] RIGHT 3D TOMOSYNTHESIS DIGITAL MAMMOGRAPHY WITH CAD CLINICAL INFORMATION: ABNORMAL MAMMOGRAM COMPARISON: May 18, 2021 TECHNIQUE: 3 views of the right breast were obtained. FINDINGS: Scattered fibroglandular densities of the right breast. Persistent asymmetric density near the 12:00 position partially compresses out on the spot compression views. Ultrasound is pending. ULTRASOUND BREAST RIGHT TECHNIQUE: Ultrasound right breast focused area of concern. CLINICAL INFORMATION: ABNORMAL MAMMOGRAM COMPARISON: None. FINDINGS: Ultrasound RIGHT breast at the 11 to 1:00 position. Dense underlying parenchymal tissue. No cystic or solid lesions. No lesions to target for biopsy. Recommend return to annual screening mammography. MM/[place] [id number] IMPRESSION: BI-RADS: 2-Benign FOLLOW UP: 1 Year Follow-up Recommend return to annual screening mammography.
== END 2021-06-08 13:24 | disposition home or self-care (01) ==
LOC: RAD 13:25
PROVIDERS: PCP Family Medicine; Visit Provider Family Medicine
DX: R92.8 Other abnormal and inconclusive findings on diagnostic imaging of breast (principal)
CPT/HCPCS: 76642; 77061

== ENCOUNTER → 2021-07-27 12:56 | Outpatient (BNVA) | payer MEDICARE, OTHER, SELFPAY | PROVIDERS: PCP Family Medicine; Visit Provider Internal Medicine | DX: R07.9 Chest pain, unspecified (principal); R00.2 Palpitations; I47.1 Supraventricular tachycardia; I49.3 Ventricular premature depolarization | CPT/HCPCS: 93005; 93225; 93226; 99204 ==

== ENCOUNTER 2021-08-22 13:23 | Outpatient (CLI) | payer MEDICARE, OTHER, SELFPAY ==
--- NOTE | 2021-08-22 13:45 | USCV_ITS ---
Floridalma Gonzalez Age: 76 Gender: F : 1945 Exam Date: 08/22/2021 13:39 Ordering Phys: Murray Gomez M.D ([email or web address]) Technologist: Sj Nascimento Exam Location[place] [facility] [place] Indication: sob BP: 120 / 64 HR: 88 Rhythm: Sinus Technical Quality: Adequate MEASUREMENTS (Male / Female) Normal Values 2D ECHO LV Diastolic Diameter PLAX 3.5 cm 4.2 - 5.9 / 3.9 - 5.3 cm LV Systolic Diameter PLAX 2.5 cm IVS Diastolic Thickness 0.8 cm 0.6 - 1.0 / 0.6 - 0.9 cm IVS Systolic Thickness 1.0 cm LVPW Diastolic Thickness 0.8 cm 0.6 - 1.0 / 0.6 - 0.9 cm LVPW Systolic Thickness 1.8 cm LVOT Diameter 2.0 cm LV Ejection Fraction 2D Teich 57.2 % LV Ejection Fraction MOD 2C 67.9 % LV Ejection Fraction 2C AL 70.0 % LA Diameter 3.6 cm LA Width 2.9 cm LA Height 4.0 cm RA Width 3.9 cm RA Height 4.0 cm Aorta at Sinotubular Diameter 2.5 cm IVC Diameter 1.8 cm M-MODE Aortic Annulus Diameter 3.0 cm LA Ao Ratio MM 1.2 MV E Point Septal Separation 0.4 cm DOPPLER AV Peak Velocity 96.3 cm/s LVOT Peak Velocity 95.0 cm/s AV Area Cont Eq vti 3.4 cm squared AV Area Cont Eq pk 3.1 cm squared MV Peak Velocity 133.0 cm/s MV Area PHT 4.0 cm squared Mitral E to A Ratio 0.6 MV E' Velocity 32.0 cm/s Mitral E to MV E' Ratio 6.9 Mitral E to LV E' Lateral Ratio 6.9 Mitral E to LV E' Septal Ratio 6.9 TR Peak Velocity 286.6 cm/s TR Peak Gradient 32.9 mmHg TR Mean Velocity 242.4 cm/s TR Mean Gradient 24.0 mmHg TR Velocity Time Integral 72.4 cm Right Atrial Pressure 3.0 mmHg Pulmonary Artery Systolic Pressu 35.9 mmHg RV Acceleration Time 0.1 s RV Ejection Time 0.3 s RV AcT/ET 0.4 FINDINGS Left Ventricle Normal left ventricular size. LV systolic function is normal with EF of 55-60%. No regional wall motion abnormalities. Grade 1 diastolic dysfunction Right Ventricle The right ventricle is normal in size and function. Right Atrium The right atrium is normal in size. Left Atrium The left atrium is normal in size. Mitral Valve Structurally normal mitral valve without significant stenosis or prolapse. There is trace mitral regurgitation. Aortic Valve Structurally normal aortic valve without significant sclerosis or stenosis. There is trace aortic regurgitation. Tricuspid Valve Structurally normal tricuspid valve without significant stenosis. Trace tricuspid regurgitation. RVSP is normal Pulmonic Valve Mild pulmonic regurgitation Pericardium Normal pericardium without effusion. Aorta Normal ascending aorta dimension. IVC CONCLUSIONS LV systolic function is normal with EF of 55 to 60%. Grade 1 diastolic dysfunction. Trace mitral regurgitation. Trace aortic regurgitation. Trace tricuspid regurgitation. Mild pulmonic regurgitation. No comparison studies are available Murray Gomez MD (Electronically Signed) Final Date: 30 August 2021 19:02 S
== END 2021-08-22 13:24 | disposition home or self-care (01) ==
LOC: RAD 13:25
PROVIDERS: PCP Family Medicine; Visit Provider Internal Medicine
DX: I08.3 Combined rheumatic disorders of mitral, aortic and tricuspid valves (principal); R06.02 Shortness of breath
CPT/HCPCS: 93306

== ENCOUNTER 2021-08-23 09:40 | Outpatient (CLI) | payer MEDICARE, OTHER, SELFPAY ==
[2021-08-23 09:56] VITALS: BMI 19.5
--- NOTE | 2021-08-23 09:56 | NMCV_ITS ---
NM michelle perf SPECT r/s* [id number] Floridalma Gonzalez Age: 76 Gender: F : 1945 Exam Date: 08/23/2021 10:52 Ordering Phys: Murray Gomez M.D ([email or web address]) Technologist: TIMOTHY Kingsley Exam Location: [facility] Indications: SHORTNESS OF BREATH STRESS TEST Please [facility] for [facility] IMAGE PROTOCOL Rest/Stress 1 Lexiscan Day Radiopharmaceutical Dose (mCi) Administration Site Administered by Rest: Tc-99m 10.7 IV TIMOTHY Ramirez Sestamibi Stress:Tc-99m 32.5 IV TIMOTHY Kingsley Sestamiluis Rest: 23-Aug-2021 60 Discovery 630 Stress: 23-Aug-2021 30 Discovery 630 0.4mg Lexiscan. Images obtained in supine and prone position. SPECT RESULTS Technical Quality: Excellent Raw Data Analysis: Normal Image Corrections: No attenuation or motion correction applied Summed Stress Score: 1 Summed Rest Score: 2 Summed Difference Score: 0 PERFUSION FINDINGS SPECT images demonstrate homogeneous tracer distribution throughout the myocardium. FUNCTIONAL RESULTS (calculated via Gated SPECT) Stress Image LV EF (%): 72 Stress EDV (mL):64 TID: 1 Stress ESV (mL):18 FUNCTIONAL FINDINGS: There is normal left ventricular systolic function. IMPRESSIONS 1. Normal myocardial perfusion imaging with no evidence of ischemia 2. LV systolic function is normal Murray Gomez MD (Electronically Signed) Final Date: 23 August 2021 18:18 S
--- NOTE | 2021-08-23 09:56 | ECG_ITS ---
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 Interpretive Statements NAME OF STUDY: LEXISCAN SESTAMIBI STRESS TEST INDICATION: [Chest Pain, ] Procedure: At the baseline, the blood pressure was 157/85 mmHg with a heart rate of 79 bpm. The electrocardiogram showed normal sinus rhythm, normal axis with normal ST and T's. The Lexiscan was infused over a period of 20 seconds. A total of 0.4 mg of Lexiscan was infused. The stress phase was continued for a total of 5 minutes. Heart rate was at the end of stress phase was 100 bpm and a blood pressure of 146/63 mmHg. The EKG at the peak infusion revealed since normal sinus rhythm with no significant ST-T wave changes. Sestamibi was injected 20 seconds after the Lexiscan infusion. Blood pressure at the end of recovery phase was 144/60 mmHg with a heart rate of 100 bpm. Conclusion: 1. Normal EKG response to Lexiscan infusion 2. No Lexiscan induced chest pain or cardiac arrhythmia. 3. Normal blood pressure and heart rate response. 4. Sestamibi/sestamibi perfusion scan pending; see separate report. Electronically Signed On 09-16-2021 11:57:17 CDT by Murray Gomez M.D. [id number]
[2021-08-23 11:29] VITALS: BP 140/71; PULSE 99
[2021-08-23] MEDS: regadenoson 0.4 Mg/5 ml Syringe IVP (11:31)
== END 2021-08-23 09:41 | disposition home or self-care (01) ==
LOC: CDL 09:43
PROVIDERS: PCP Family Medicine; Visit Provider Internal Medicine
DX: I08.3 Combined rheumatic disorders of mitral, aortic and tricuspid valves (principal); R06.02 Shortness of breath
CPT/HCPCS: 78452; 93017; A9500; J2785

== ENCOUNTER → 2021-09-28 14:36 | Outpatient (BNVA) | payer MEDICARE, OTHER, SELFPAY | PROVIDERS: PCP Family Medicine; Visit Provider Internal Medicine | DX: R07.89 Other chest pain (principal); R00.2 Palpitations | CPT/HCPCS: 99214 ==

== ENCOUNTER → 2022-04-25 14:55 | Outpatient (BNVA) | payer MEDICARE, OTHER, SELFPAY | PROVIDERS: PCP Family Medicine; Visit Provider Nurse Practitioner Family | DX: R07.89 Other chest pain (principal) | CPT/HCPCS: 99213 ==

== ENCOUNTER 2022-06-15 14:05 | Outpatient (CLI) | payer MEDICARE, OTHER, SELFPAY ==
--- NOTE | 2022-06-15 14:16 | MM_ITS ---
WS: [id number] BILATERAL 3D TOMOSYNTHESIS DIGITAL SCREENING MAMMOGRAPHY WITH CAD CLINICAL INFORMATION: SCREEN HISTORY: Screening mammogram. No current complaints. COMPARISON: May 18, 2021 TECHNIQUE: Bilateral CC and MLO views. FINDINGS: Scattered fibroglandular densities bilaterally. No suspicious focal mass, asymmetry, calcifications, or architectural distortion. No evidence of malignancy. Lucent centered calcification LEFT breast. Va scular calcification. MM/[place] [id number] IMPRESSION: BI-RADS: 2-Benign FOLLOW UP: 1 Year Follow-up Recommend return to annual screening mammography.
== END 2022-06-15 14:06 | disposition home or self-care (01) ==
LOC: RAD 14:11
PROVIDERS: PCP Family Medicine; Visit Provider Family Medicine
DX: Z12.31 Encounter for screening mammogram for malignant neoplasm of breast (principal)
CPT/HCPCS: 77063; 77067

== ENCOUNTER 2022-09-17 08:48 | Outpatient (CLI) | payer MEDICARE, OTHER, SELFPAY ==
--- NOTE | 2022-09-17 09:06 | US_ITS ---
WS: [id number] US pelv w/transvag [id number] HISTORY: POST MENOPAUSAL BLEEDING COMPARISON: None available. Status post hysterectomy. No midline soft tissue masses are identified. There is a large amount of pe ristalsing bowel within the pelvis extending into the adnexa. Neither ovary is identified. There is n o mass identified at the vaginal cuff. No free fluid. US/US pelv w/transvag [id number] IMPRESSION: Status post hysterectomy. No evidence for mass at the vaginal cuff. Neither ova ry identified.
== END 2022-09-17 08:49 | disposition home or self-care (01) ==
LOC: RAD 08:52
PROVIDERS: PCP Family Medicine; Visit Provider Nurse Practitioner Family
DX: N95.0 Postmenopausal bleeding (principal); Z90.710 Acquired absence of both cervix and uterus
CPT/HCPCS: 76830; 76856

== ENCOUNTER → 2022-09-19 13:20 | Outpatient (BNVA) | payer MEDICARE, OTHER, SELFPAY | PROVIDERS: PCP Family Medicine; Visit Provider Psychiatry & Neurology Psychiatry | DX: Z79.899 Other long term (current) drug therapy (principal); F32.4 Major depressive disorder, single episode, in partial remission | CPT/HCPCS: 80053; 80061; 83036; 84443; 85025 ==

== ENCOUNTER → 2022-10-05 13:24 | Outpatient (BNVA) | payer MEDICARE, OTHER, SELFPAY | PROVIDERS: PCP Family Medicine; Visit Provider Surgery | DX: K52.9 Noninfective gastroenteritis and colitis, unspecified (principal); R10.9 Unspecified abdominal pain | CPT/HCPCS: 99204 ==

== ENCOUNTER → 2022-10-31 14:55 | Outpatient (BNVA) | payer MEDICARE, OTHER, SELFPAY ==
[2022-10-10 16:54] VITALS: BP 132/71; BMI 20.8
== END ==
PROVIDERS: PCP Family Medicine; Visit Provider Internal Medicine
DX: R07.9 Chest pain, unspecified (principal); R06.02 Shortness of breath
CPT/HCPCS: 99214

== ENCOUNTER 2022-11-05 08:06 | Outpatient (CLI) | payer MEDICARE, OTHER, SELFPAY ==
[2022-10-10 16:54] VITALS: BP 132/71; BMI 20.8
--- NOTE | 2022-11-05 08:16 | FL_ITS ---
WS: [id number] Exam: FL barium swallow [id number] Date/Time of Exam: 11/05/2022 8:24 AM Reason For Exam: DYSPHAGIA Fluoroscopy time: 2min [id number] minutes # of spot films: Compared with prior study from an outside facility dated 04/08/2017. Swallowing function at the level of the oropharynx was normal. There is no indication of esophageal s tricture or mass. Signs of previous fundoplication. No gastroesophageal reflux was noted. The esophag us is widely patent at all levels. The esophagus is not displaced. Mild spasm of the mid and lower es ophagus. No aspiration was observed. IMPRESSION: 1. Mild esophageal spasm. No indication of esophageal stricture, mass or gastroesophageal reflux. 2. Signs of previous fundoplication.
== END 2022-11-05 08:07 | disposition home or self-care (01) ==
PROVIDERS: Surgery; PCP Family Medicine; Visit Provider Family Medicine
DX: R19.7 Diarrhea, unspecified (principal); R13.10 Dysphagia, unspecified; K22.4 Dyskinesia of esophagus
CPT/HCPCS: 74220; 83630; 83993; 87045; 87177; 87209; 87324; 87427; 87449

== ENCOUNTER 2022-11-08 07:37 | Day surgery (SDC) | payer MEDICARE, OTHER, SELFPAY ==
[2022-10-10 16:54] VITALS: BP 132/71; BMI 20.8
[2022-11-06 08:56] VITALS: BMI 20.5
--- NOTE | 2022-11-08 06:31 | W.PM.OPSFHP ---
Same Day Surgery H&P Indication for Procedure/HPI DATE OF PROCEDURE: November 08, 2022 CHIEF COMPLAINT/INDICATIONFOR SURGICAL PROCEDURE: Chronic Diarrhea PREOP DIAGNOSIS: Chronic diarrhea PLANNED PROCEDURE: Operation Date: 11/08/22 08:40 Proposed Procedures p Colonoscopy 67289,K52.9(Not Applicable) - Jimmie Jones MD Medications/Allergies* Home Medications Medication Instructions Recorded Confirmed Type acetaminophen 325 mg tablet 325 mg PO Q6H PRN Pain 12/02/19 11/06/22 History (Tylenol) albuterol sulfate 90 mcg/actuation 2 inh inhalation Q4H PRN shortness 12/02/19 11/06/22 History aerosol inhaler (Ventolin HFA) of breath buspirone 5 mg tablet 5 mg PO BID 12/02/19 11/06/22 History calcium carbonate 600 mg calcium 600 mg PO BID 12/02/19 11/06/22 History (1,500 mg) tablet (Calcium) cholecalciferol (vitamin D3) 25 1,000 unit PO DAILY 12/02/19 11/06/22 History mcg (1,000 unit) tablet meloxicam 7.5 mg tablet 7.5 mg PO DAILY 12/02/19 11/06/22 History multivitamin 1 tab PO DAILY 12/02/19 11/06/22 History tramadol 50 mg tablet 50 mg PO TID 12/02/19 11/06/22 History alprazolam 0.25 mg tablet 0.25 mg PO DAILY 07/27/21 11/06/22 History carbidopa 10 mg-levodopa 100 mg 1 tab PO TID 07/27/21 11/06/22 History tablet nitroglycerin 0.4 mg sublingual 0.4 mg sublingual Q5M PRN Chest 07/27/21 11/06/22 History tablet Pain melatonin 3 mg capsule 3 mg PO .hs 04/25/22 11/06/22 History omeprazole 20 mg capsule,delayed 20 mg PO DAILY 04/25/22 11/06/22 History release Allergies/Adverse Reactions Allergy/AdvReac Type Severity Reaction Status Date / Time hydrocodone Allergy Unknown ADR-Halluci Verified 11/06/22 08:48 nating lithium Allergy Unknown Caused her Verified 11/06/22 08:48 to have uncontrolable shakes primidone Allergy Unknown balance Verified 11/06/22 08:48 and mental status change Pertinent History/Comorbid Conditions* Medical History (Updated 08/16/21 @ 15:52 by Oly Covington MD) Anxiety Back pain Depression Movement disorder Psychiatric care Family History (Updated 12/02/19 @ 12:10 by Cynthia Rangel RN) Stroke Social History Smoking and tobacco status: never smoked Second hand smoke exposure: No Alcohol intake: never Substance/Drug Use: never Pertinent Exam Findings alert, oriented x 3, clear to auscultation bilaterally and regular rate & rhythm Recommendations Surgery/Procedure today Coding Level of Care Code Acute Code for Chg Fwd Diagnoses
[2022-11-08] MEDS: sodium chloride 0.9% 1,000 ML 30 ML IV (07:58)
[2022-11-08 08:03] VITALS: BP 129/88; PULSE 94; RESP 18; TEMP 36.6; O2SAT 97
--- NOTE | 2022-11-08 09:10 | ANES.PREANE2 ---
Pre-Anesthetic Assessment Height/Weight: Height 1.7 m Weight 59.421 kg Temp Pulse Resp BP Pulse Ox O2 Del Method 97.9 F 94 18 129/88 97 Room Air 11/08/22 08:03 11/08/22 08:03 11/08/22 08:03 11/08/22 08:03 11/08/22 08:03 11/08/22 08:03 Preop Diagnosis: Chronic diarrhea Operation Date: 11/08/22 08:40 Proposed Procedures p Colonoscopy 63235,K52.9(Not Applicable) - Jimmie Jones MD Familial anesthetic complications: none Was Beta Anant taken within 24 hours: N/A Was Clonidine taken within 24 hours: N/A Last intake: Intake Last Liquid Date 11/08/22 Last Liquid Time 06:00 Last Solid Date 11/06/22 Social No alcohol and No tobacco Exam alert and oriented x 3 Airway Submandibular: within normal limits Cervical ROM: within normal limits Mallampati: Class II Dentition: full Pulmonary Asthma CV/HEM Hypertension None reported Hepatic None reported GI Gastroesophageal Reflux Disease Metabolic None reported Musc/skel Osteoarthritis/DJD Neuropsych Dementia (A&O x4) parkinsons Anesthetic Plan ASA status: 3 Anesthesia: Anesthesia Evaluation, General and MAC Medications/Allergies Home Medications Medication Instructions Recorded Confirmed Last Taken Type acetaminophen 325 mg tablet 325 mg PO Q6H PRN Pain 12/02/19 11/06/22 11/07/22 History (Tylenol) albuterol sulfate 90 mcg/actuation 2 inh inhalation Q4H PRN shortness 12/02/19 11/06/22 11/07/22 History aerosol inhaler (Ventolin HFA) of breath buspirone 5 mg tablet 5 mg PO BID 12/02/19 11/06/22 11/07/22 History calcium carbonate 600 mg calcium 600 mg PO BID 12/02/19 11/06/22 11/07/22 History (1,500 mg) tablet (Calcium) cholecalciferol (vitamin D3) 25 1,000 unit PO DAILY 12/02/19 11/06/22 11/07/22 History mcg (1,000 unit) tablet meloxicam 7.5 mg tablet 7.5 mg PO DAILY 12/02/19 11/06/22 11/07/22 History multivitamin 1 tab PO DAILY 12/02/19 11/06/2223 History tramadol 50 mg tablet 50 mg PO TID 12/02/19 11/06/22 11/06/22 History alprazolam 0.25 mg tablet 0.25 mg PO DAILY 07/27/21 11/06/22 11/07/22 History carbidopa 10 mg-levodopa 100 mg 1 tab PO TID 07/27/21 11/06/22 11/08/22 06:00 History tablet nitroglycerin 0.4 mg sublingual 0.4 mg sublingual Q5M PRN Chest 07/27/21 11/06/22 Unknown History tablet Pain melatonin 3 mg capsule 3 mg PO .hs 04/25/22 11/06/22 11/07/22 History omeprazole 20 mg capsule,delayed 20 mg PO DAILY 04/25/22 11/06/22 11/07/22 History release bupropion HCl 75 mg tablet 75 mg PO QAM 30 days #30 tabs 06/18/22 11/06/22 11/07/22 Rx escitalopram oxalate 20 mg tablet 20 mg PO DAILY 30 days #30 tabs 06/18/22 11/06/22 11/07/22 Rx metoprolol tartrate 25 mg tablet 12.5 mg PO BID #90 tabs 10/10/22 11/06/22 11/07/22 Rx Allergies Allergy/AdvReac Type Severity Reaction Status Date / Time hydrocodone Allergy Unknown ADR-Halluci Verified 11/08/22 07:51 nating lithium Allergy Unknown Caused her Verified 11/08/22 07:51 to have uncontrolable shakes primidone Allergy Unknown balance Verified 11/08/22 07:51 and mental status change Current Medications Generic Name Dose Route Start Last Admin Trade Name Freq PRN Reason Stop Dose Admin Sodium Chloride 1,000 mls @ 30 mls/hr 11/08/22 07:45 11/08/22 07:58 Sodium Chloride 0.9% IV 30 mls/hr .Q24H NORAH Administration PFSH Anesthesia Medical History (Updated 05/03/22 @ 08:29 by Maeve Griffin, MS, [facility]) Anxiety Back pain Depression Movement disorder Psychiatric care Family History Other Stroke Social History Smoking and tobacco status: never smoked Second hand smoke exposure: No Alcohol intake: never Substance/Drug Use: never Data Anesthesia Cardiac Studies: Echocardiogram 08/22/21 Sestamibi Stress Test (Cardiology) 08/23/21 Holter Monitor 07/27/21
[2022-11-08 10:13] VITALS: BP 110/65; PULSE 69; RESP 18; TEMP 36.6; O2SAT 100
[2022-11-08 10:26] VITALS: BP 114/74; PULSE 74; RESP 16; O2SAT 98
--- NOTE | 2022-11-08 11:30 | ANE.PACU2 ---
Inpatient post-anesthesia follow up: Airway intact: Yes Vital signs: Temperature 97.9 F Pulse Rate 74 Respiratory Rate 16 Blood Pressure 114/74 Pulse Oximetry 98 Oxygen Delivery Me thod Room Air Oxygen Flow Rate Fraction of Inspir ed Oxygen Hydration adequate: Yes Nausea and vomiting: No Pain level: 1 Mental status: Baseline
== END 2022-11-08 10:46 | disposition home or self-care (01) ==
PROVIDERS: PCP Family Medicine; Visit Provider Surgery
PROC: 0DJD8ZZ Inspection of Lower Intestinal Tract, Via Natural or Artificial Opening Endoscopic (ICD-10-PCS; CPT 45378; principal; 2022-11-08 08:40)
DX: K52.9 Noninfective gastroenteritis and colitis, unspecified (principal); K57.30 Diverticulosis of large intestine without perforation or abscess without bleeding; I10 Essential (primary) hypertension; K21.9 Gastro-esophageal reflux disease without esophagitis; M19.90 Unspecified osteoarthritis, unspecified site; F03.90 Unspecified dementia, unspecified severity, without behavioral disturbance, psychotic disturbance, mood disturbance, and anxiety; G20 Parkinson's disease
CPT/HCPCS: 45380; 88305; J2704; J7030

== ENCOUNTER → 2022-11-22 13:36 | Outpatient (BNVA) | payer MEDICARE, OTHER, SELFPAY ==
[2022-10-10 16:54] VITALS: BP 132/71; BMI 20.8
== END ==
PROVIDERS: PCP Family Medicine; Visit Provider Surgery
DX: Z09 Encounter for follow-up examination after completed treatment for conditions other than malignant neoplasm (principal)
CPT/HCPCS: 99212

== ENCOUNTER → 2023-05-06 08:44 | Outpatient (BNVA) | payer MEDICARE, OTHER, SELFPAY ==
[2022-10-10 16:54] VITALS: BP 132/71; BMI 20.8
== END ==
PROVIDERS: PCP Family Medicine; Visit Provider Psychiatry & Neurology Neurology
DX: G20.A1 Parkinson's disease without dyskinesia, without mention of fluctuations (principal); G31.84 Mild cognitive impairment of uncertain or unknown etiology; Z86.718 Personal history of other venous thrombosis and embolism; G25.9 Extrapyramidal and movement disorder, unspecified; E55.9 Vitamin D deficiency, unspecified; M79.661 Pain in right lower leg; R26.89 Other abnormalities of gait and mobility
CPT/HCPCS: 36415; 82542; 82607; 82652; 82746; 83735; 83921; 84439; 84443; 84481; 99203

== ENCOUNTER 2023-05-10 14:20 | Outpatient (CLI) | payer MEDICARE, OTHER, SELFPAY ==
[2022-10-10 16:54] VITALS: BP 132/71; BMI 20.8
--- NOTE | 2023-05-10 15:00 | USCV_ITS ---
Floridalma Gonzalez Age: 78 Gender: F : 1945 Exam Date: 05/10/2023 14:31 Ordering Phys: Alexys Preston MD Technologist: [email or web address] Exam Location: [facility] – [place] Indication: Limp HISTORY: limp PROCEDURES: Venous duplex imaging was performed in only the right lower extremity. The following venous structures were evaluated: common femoral vein, profunda vein, proximal portion of the greater saphenous vein, superficial femoral vein, and the popliteal vein. In addition, the posterior tibial and peroneal trunk were evaluated. Serial compression, augmentation maneuvers, and spectral Doppler flow evaluation were performed. FINDINGS: Normal 2-D Doppler and augmentation and compressibility throughout the lower extremity venous structures. Additional imaging through the proximal calf veins also reveals no thrombus. Limited evaluation of the greater saphenous vein is patent with no thrombus. CONCLUSIONS No DVT right lower extremity. Dr. Dina Thomas DO (Electronically Signed) Final Date: 10 May 2023 15:12 S
== END 2023-05-10 14:21 | disposition home or self-care (01) ==
LOC: RAD 14:20
PROVIDERS: PCP Family Medicine; Visit Provider Psychiatry & Neurology Neurology
DX: Z86.718 Personal history of other venous thrombosis and embolism (principal); G25.9 Extrapyramidal and movement disorder, unspecified; R26.89 Other abnormalities of gait and mobility
CPT/HCPCS: 93971

== ENCOUNTER 2023-06-17 11:48 | Outpatient (CLI) | payer MEDICARE, OTHER, SELFPAY ==
[2022-10-10 16:54] VITALS: BP 132/71; BMI 20.8
--- NOTE | 2023-06-17 11:59 | MM_ITS ---
WS: [id number] BILATERAL 3D TOMOSYNTHESIS DIGITAL SCREENING MAMMOGRAPHY WITH CAD CLINICAL INFORMATION: SCREENING HISTORY: Screening mammogram. LEFT breast pain and soreness COMPARISON: 06/15/2022 TECHNIQUE: Bilateral CC and MLO views. FINDINGS: Scattered fibroglandular densities bilaterally. No suspicious focal mass, asymmetry, calcifications, or architectural distortion. No evidence of malignancy. Incidental lucent centered calcification LEFT breast. IMPRESSION: MM/[place] [id number] BI-RADS: 2-Benign FOLLOW UP: 1 Year Follow-up Recommend return to annual screening mammography.
== END 2023-06-17 11:49 | disposition home or self-care (01) ==
LOC: RAD 11:48
PROVIDERS: PCP Family Medicine; Visit Provider Family Medicine
DX: Z12.31 Encounter for screening mammogram for malignant neoplasm of breast (principal)
CPT/HCPCS: 77063; 77067

== ENCOUNTER → 2023-10-30 12:40 | Outpatient (BNVA) | payer MEDICARE, OTHER, SELFPAY ==
[2022-10-10 16:54] VITALS: BP 132/71; BMI 20.8
== END ==
PROVIDERS: PCP Family Medicine; Visit Provider Internal Medicine
DX: R07.9 Chest pain, unspecified (principal)
CPT/HCPCS: 99213

== ENCOUNTER → 2023-10-31 09:54 | Outpatient (BNVA) | payer MEDICARE, OTHER, SELFPAY ==
[2022-10-10 16:54] VITALS: BP 132/71; BMI 20.8
== END ==
PROVIDERS: PCP Family Medicine; Visit Provider Psychiatry & Neurology Neurology
DX: G31.84 Mild cognitive impairment of uncertain or unknown etiology (principal); G25.9 Extrapyramidal and movement disorder, unspecified; Z86.718 Personal history of other venous thrombosis and embolism; M79.671 Pain in right foot; M79.672 Pain in left foot; M79.661 Pain in right lower leg; R26.89 Other abnormalities of gait and mobility
CPT/HCPCS: 99212; 99213

== ENCOUNTER → 2023-11-26 09:47 | Outpatient (BNVA) | payer MEDICARE, OTHER, SELFPAY ==
[2022-10-10 16:54] VITALS: BP 132/71; BMI 20.8
== END ==
PROVIDERS: PCP Family Medicine; Visit Provider Podiatrist Foot & Ankle Surgery
DX: M79.671 Pain in right foot (principal); M79.672 Pain in left foot; G20.B1 Parkinson's disease with dyskinesia, without mention of fluctuations; R26.89 Other abnormalities of gait and mobility; M21.371 Foot drop, right foot
CPT/HCPCS: 73630; 99203

== ENCOUNTER 2024-07-01 10:54 | Outpatient (CLI) | payer MEDICARE, OTHER, SELFPAY ==
[2022-10-10 16:54] VITALS: BP 132/71; BMI 20.8
--- NOTE | 2024-07-01 10:56 | MM_ITS ---
WS: [id number] BILATERAL 3D TOMOSYNTHESIS DIGITAL SCREENING MAMMOGRAPHY WITH CAD CLINICAL INFORMATION: SCREEN HISTORY: Screening mammogram. No current complaints. COMPARISON: 2023 TECHNIQUE: Bilateral CC and MLO views. FINDINGS: Scattered fibroglandular densities bilaterally. No suspicious focal mass, asymmetry, calcifications, or architectural distortion. No evidence of malignancy. Vascular calcification. Lucent centered calcification LEFT breast. MM/MM scr tomosynthesis [id number] IMPRESSION: DENSITY: There are scattered areas of fibroglandular density. BI-RADS: 2 - Benign. FOLLOW UP: 1 Year Follow-up Recommend return to annual screening mammography.
== END 2024-07-01 10:55 | disposition home or self-care (01) ==
LOC: RAD 10:55
PROVIDERS: PCP Family Medicine; Visit Provider Family Medicine
DX: Z12.31 Encounter for screening mammogram for malignant neoplasm of breast (principal); R92.323 Mammographic fibroglandular density, bilateral breasts; R92.1 Mammographic calcification found on diagnostic imaging of breast
CPT/HCPCS: 77063; 77067

== ENCOUNTER → 2024-07-29 14:06 | Outpatient (BNVA) | payer MEDICARE, OTHER, SELFPAY ==
[2022-10-10 16:54] VITALS: BP 132/71; BMI 20.8
== END ==
PROVIDERS: PCP Family Medicine; Visit Provider Internal Medicine
DX: R07.89 Other chest pain (principal)
CPT/HCPCS: 99213

== ENCOUNTER → 2024-11-30 10:05 | Outpatient (BNVA) | payer MEDICARE, OTHER, SELFPAY ==
[2022-10-10 16:54] VITALS: BP 132/71; BMI 20.8
== END ==
PROVIDERS: PCP Family Medicine; Visit Provider Podiatrist Foot & Ankle Surgery
DX: G20.B1 Parkinson's disease with dyskinesia, without mention of fluctuations (principal); R26.89 Other abnormalities of gait and mobility; M21.371 Foot drop, right foot
CPT/HCPCS: 99213

== ENCOUNTER 2025-02-24 09:01 | Outpatient (RCR) | payer MEDICARE, OTHER, SELFPAY ==
[2022-10-10 16:54] VITALS: BP 132/71; BMI 20.8
== END 2025-02-24 23:59 | disposition home or self-care (01) ==
LOC: MPT 09:01
PROVIDERS: PCP Family Medicine; Visit Provider Psychiatry & Neurology Neurology
DX: R26.81 Unsteadiness on feet (principal)
CPT/HCPCS: 97110; 97112; 97162; 97530